=== PATIENT | female | born 1965 | race Asian ===

== ENCOUNTER 2019-06-28 08:16 | Emergency (ER) | payer BC ==
[~2019-06-28] VITALS: Ht 167.6 cm; Wt 58.1 kg
[2019-06-28 08:28] VITALS: BP_SYST 136
[2019-06-28] MEDS ORDERED: LIDOCAINE 1% 10 MG/ML, 20 ML MDV INJ ONE (08:45)
[2019-06-28] MEDS ORDERED: BACITRACIN 1 GM OINT TP ONE (09:28)
[2019-06-28 09:30] VITALS: BP_SYST 136
== END 2019-06-28 08:30 | disposition home or self-care (01) ==
LOC: SED 08:16
DX: S81.811A Laceration without foreign body, right lower leg, initial encounter (principal); W22.8XXA Striking against or struck by other objects, initial encounter; Y93.89 Activity, other specified; Y92.89 Other specified places as the place of occurrence of the external cause; Y99.8 Other external cause status
CPT/HCPCS: 99284